=== PATIENT | male | born 1950 | race Caucasian/White ===

== ENCOUNTER 2021-09-28 18:38 | Emergency (ER) | payer MEDICARE, OTHER, SELFPAY ==
[2021-09-28 18:39] VITALS: BP 146/73; PULSE 82; RESP 18; TEMP 36.9; O2SAT 97; BMI 30.2
[2021-09-28 19:18] LABS: Absolute Lymphocyte Count 1.51 X10^3/uL (0.83-4.51); Basophil# 0.06 X10^3/uL; Basophil% 0.8 % (0-1); Eosinophil# 0.18 X10^3/uL; Eosinophils% 2.5 % (0-5); Hematocrit 42.2 % (40-54); Hemoglobin 14.2 g/dL (13.0-16.5); Lymphocyte # 1.51 X10^3/ul (0.83-4.51); Mean Corp Hgb Conc 33.6 g/dL (32-36); Mean Corpuscular Hgb 29.1 pg (27.0-32.0); Mean Corpuscular Volume 86.5 fL (80-94); Mean Platelet Vol. 8.5 fl (6.2-12.0); Monocyte# 0.46 X10^3/uL; Monocyte% 6.4 % (0-10); NRBC Flagged by Analyzer 0 % (0-5); Neutrophil # 4.96 X10^3/uL (2.7-7.7); Neutrophil % 68.9 % (47-70); Platelet Count 224 K/mm3 (150-450); RBC Distribution Width CV 13.1 % (11.6-14.6); RBC Distribution Width SD 40.7 fl (35.1-43.9); Red Blood Count 4.88 M/mm3 (4.6-6.2); White Blood Count 7.2 K/mm3 (4.4-11.0)
--- NOTE | 2021-09-28 19:36 | RAD_ITS ---
STUDY: X-RAY CHEST REASON FOR EXAM: Male, 71 years old. chest pain right-sided chest pain back pain history of pulmonary embolism TECHNIQUE: Frontal portable view of the chest COMPARISON: None. FINDINGS: The lungs are clear and expanded. There is no demonstrated pleural abnormality. Normal size heart. Normal mediastinum and joycelyn. Normal visualized pulmonary arteries. Normal visualized aortic arch and descending thoracic aorta. Normal visualized thoracic spine. Normal visualized ribs, clavicles, and shoulders. There is no demonstrated abnormality of the visualized soft tissue structures of the upper abdomen. RAD/Chest 1 View (Portable) IMPRESSION: Normal x-ray examination of the chest. Electronically Signed: Mahogany Schmidt MD at 20:12 EST Tel , Service support ,
[2021-09-28 19:44] LABS: Anion Gap 7 (5-15); BUN 21 mg/dL (7-18); BUN/Creat Ratio 16.3 RATIO (10-20); Chloride 108 mmol/L (98-107); Creatinine, Serum 1.29 mg/dL (0.70-1.30); EST Glomerular Filtration Rate 58 mL/min (>60); Est Glom Filt Rate - Afr Amer 70 mL/min (>60); Estimated Creatinine Clearance 60.18 ml/min; Glucose 137 mg/dL (74-106); Potassium 3.8 mmol/L (3.5-5.1); Sodium Level 139 mmol/L (136-145); Troponin-I HS 5 pg/mL (3.0-78.0)
[2021-09-28 21:54] VITALS: PULSE 88; RESP 13; O2SAT 97
--- NOTE | 2021-09-28 21:59 | CT_ITS ---
STUDY: CTA CHEST REASON FOR EXAM: Male, 71 years old. Right sided chest pain. Shortness of breath. RADIATION DOSAGE (If Supplied By Facility): CTDIvol = ( 13.89 ) mGy, DLP = ( 523.52 ) mGycm TECHNIQUE: The examination was performed with the intravenous administration of IV 100mL Isovue-370. Post-processing of the angiographic images was performed, with multiplanar reformation and 3D reconstruction. Individualized dose optimization techniques were used for this CT. COMPARISON: Chest, 09/28/2021. FINDINGS: Normal enhancement of the main pulmonary artery and right and left pulmonary arteries. Normal enhancement of the bilateral peripheral pulmonary arteries. There is no demonstrated pulmonary embolism. Normal thoracic aorta and visualized great vessels. There is no demonstrated aortic dissection. Normal heart and pericardium. Normal mediastinum. There is a calcified lymph node in the right hilum. Normal visualized trachea and bronchi. The lungs are well expanded. There is a calcified granuloma in the right upper lobe seen best on image 154 of series 2. Normal pleura. Normal chest wall structures. There are degenerative changes of thoracic spine. Calcified granulomata are seen in the spleen. CT/CTA Chest W/WO Contrast IMPRESSION: 1. No evidence of pulmonary embolus. 2. No aortic dissection. 3. Old granulomatous disease without acute cardiopulmonary process. Electronically Signed: Wilber Elkins DO at 22:49 EST Tel [phone], Service support ,
--- NOTE | 2021-09-28 22:00 | EDS_ITS ---
HPI History of Present Illness Chief Complaint: Chest Pain Informant: patient Onset/Context/Timing Onset: Today Current Severity: Mild Maximum Severity: Moderate Narrative Narrative: Patient presents with right-sided chest pain and back pain. Symptoms started around 430 this afternoon. Pain was around the lower portion of the scapula and will occasionally wrap around to the front of his chest. He states it felt like muscle spasms. 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 He was on Eliquis for 1 year but not currently on anticoagulants. He did state that he lifted some suitcases out of the car earlier today and is wondering if that may have triggered his symptoms. He denies shortness of breath. [facility] Medical History (Updated 09/28/21 @ 23:[address] Catrachita Robles MD) Diabetes Pulmonary embolism Home Medications NK 09/28/21 [History Last Taken Unknown] Allergy/AdvReac Type Severity Reaction Status Date / Time Penicillins Allergy Rash Verified 09/28/21 18:41 Social History Smoking Status: Never smoker ROS ROS ED Constitutional Constitutional ED: Denies chills or fever(s) Eyes Eyes: Denies change in vision ENT ENT ED: Denies sore throat Cardiovascular Cardiovascular: Reports chest pain Respiratory/Chest Respiratory/Chest: Denies cough or dyspnea Gastrointestinal Gastrointestinal: Denies abdominal pain, diarrhea, nausea or vomiting Genitourinary Genitourinary ED: Denies dysuria Musculoskeletal Musculoskeletal: Reports back pain Integumentary Denies rash Neurologic Neurologic: Denies headache(s) or weakness Allergic/Immunologic Allergic/Immunologic ED: Denies urticaria EXAM Physical Exam Const Vital Signs: 09/28/21 18:39 09/28/21 21:54 09/28/21 22:20 Temperature 98.5 F Temperature Source Temporal Pulse Rate 82 88 Respiratory Rate 18 13 Respiratory Effort Normal Non-Labored Blood Pressure 146/73 H Blood Pressure Mean 97 Pulse Ox 97 97 Oxygen Delivery Method Room Air Room Air Positive well nourished and well developed General Appearance ED: well developed HEENT Reports moist mucous membranes Eyes PERRL and EOMs intact bilaterally Neck no lymphadenopathy and supple Chest Wall inspection of chest normal and palpation of chest normal Resp normal respiratory effort and clear to auscultation bilaterally Cardio regular rate and regular rhythm GI normal to inspection, nondistended, normoactive bowel sounds and non-tender Palpation: soft Back/Spine no CVA tenderness Back/Spine Narrative: No reproducible thoracic or periscapular tenderness. No skin changes. Neuro oriented x3 Sensorium / Orientation: alert Psych mental status grossly normal Skin no rashes or lesions noted MDM MDM MDM Narrative Medical decision making narrative: EKG and lab work obtained. CTA chest ordered. Lab Data Attestation: I reviewed the patient's lab results. Labs: Laboratory Results - last 24 hr 09/28/21 09/28/21 19:05 19:05 WBC 7.2 RBC 4.88 Hgb 14.2 Hct 42.2 MCV 86.5 MCH 29.1 MCHC 33.6 RDW Std Deviation 40.7 RDW Coeff of Lul 13.1 Plt Count 224 MPV 8.5 Immature Gran % (Auto) 0.400 Neut % (Auto) 68.9 Lymph % (Auto) 21.0 Cascade % (Auto) 6.4 Eos % (Auto) 2.5 Baso % (Auto) 0.8 Absolute Neuts (auto) 5.0 Absolute Lymphs (auto) 1.51 Nucleated RBC % 0 Sodium 139 Potassium 3.8 Chloride 108 H Carbon Dioxide 24.0 Anion Gap 7 BUN 21 H Creatinine 1.29 Estim Creat Clear Calc 60.18 Est GFR (MDRD) Af Amer 70 Est GFR (MDRD) Non-Af 58 L BUN/Creatinine Ratio 16.3 Glucose 137 H Calcium 9.0 Troponin I High Sens 5 Radiography Diagnostic Testing: Clinical Impression(s) from Imaging Studies Chest X-Ray 09/28/21 19:36 IMPRESSION: Normal x-ray examination of the chest. Electronically Signed: Mahogany Schmidt MD at 20:12 EST Tel , Service support , Chest CTA 09/28/21 21:59 IMPRESSION: 1. No evidence of pulmonary embolus. 2. No aortic dissection. 3. Old granulomatous disease without acute cardiopulmonary process. Electronically Signed: Wilber Elkins DO at 22:49 EST Tel [phone], Service support , EKG Initial EKG: Attestation: I personally reviewed and interpreted this EKG as follows: Interpretation: Sinus Rhythm (Sinus 80 with no significant ischemia.) Treatment and Re-Evaluation Comments:: On repeat evaluation patient resting comfortably. Pain is resolved at this time. CTA reveals no evidence of PE. Troponin unremarkable. Patient given return instructions. Discharge Plan Triage Chief Complaint: Chest Pain ED Provider: Catrachita Robles Dx/Rx/DC Orders Clinical Impression: Musculoskeletal chest pain Instructions: ED Strain Chest Wall Prescriptions: No Action NK RF: 0 Disposition Disposition: Home, Self Care
[2021-09-28 23:00] LABS: Troponin-I HS 5 pg/mL (3.0-78.0)
[2021-09-28 23:07] VITALS: PULSE 69; RESP 14; O2SAT 95
== END 2021-09-28 23:12 | disposition home or self-care (01) ==
PROVIDERS: Emergency Provider Emergency Medicine
DX: R07.89 Other chest pain (principal); E11.9 Type 2 diabetes mellitus without complications; Z86.711 Personal history of pulmonary embolism
CPT/HCPCS: 71045; 71275; 80048; 84484; 85025; 93005; 99284; Q9967; A4216